=== PATIENT | male | born 1980 | race Caucasian/White ===

== ENCOUNTER 2018-05-27 15:02 | Emergency (ER) | payer OTHER ==
[~2018-05-27] VITALS: Ht 180.3 cm; Wt 83.2 kg
[2018-05-27 17:08] LABS: BASOPHIL (%) 0.5 % (0-1); EOSINOPHIL (%) 0.1 % (0-5); IMMATURE GRANULOCYTE (%) 0.2 % (0.0-0.7); LYMPHOCYTE (%) 37.7 % (15-42); LYMPHOCYTE COUNT 3.1 K/uL (1.0-2.8); MCH 35.1 PG (29.0-34.0); MCHC 36.4 G/DL (30.0-36.0); MCV 96.5 FL (86-99); MONOCYTE (%) 13.7 % (3-12); MONOCYTE COUNT 1.1 K/uL (0-0.8); NEUTROPHIL (%) 47.8 % (45-76); PLATELET COUNT 296 K/uL (156-360); RBC DIS.WIDTH-CV 12.5 % (11.8-14.6); RED BLOOD COUNT 4.56 M/uL (4.00-5.50); WHITE BLOOD COUNT 8.3 K/uL (4.1-10.2)
[2018-05-27 17:26] LABS: ALBUMIN 4.5 g/dL (3.2-4.8); CHLORIDE 100 mEq/L (99-109); POTASSIUM 3.8 mEq/L (3.7-5.4); SODIUM 139 mEq/L (136-147)
[2018-05-27 17:28] LABS: GLUCOSE 131 mg/dL (70-99); TOTAL PROTEIN 7.1 g/dL (6.4-8.3)
[2018-05-27 17:30] LABS: TOTAL BILIRUBIN 0.5 mg/dL (0.0-1.0)
[2018-05-27 17:31] LABS: SERUM ETHYL ALCOHOL 296 mg/dL
[2018-05-27 17:32] LABS: ALKALINE PHOSPHATASE 116 IU/L (3-129); CREATININE 0.8 mg/dL (0.6-1.3); GFR ESTIMATE (CALCULATED) > 59 mL/min/ (58.99-99999)
[2018-05-27 17:33] LABS: AST (GOT) 194 IU/L (2-34); DIRECT BILIRUBIN 0.2 mg/dL (0.0-0.3); UREA NITROGEN (BUN) 11 mg/dL (9-23)
[2018-05-27 17:35] LABS: ALT (GPT) 198 IU/L (3-49); LIPASE 37 U/L (1.0-51.0)
[2018-05-27 19:34] VITALS: BP 112/73
== END 2018-05-27 19:34 | disposition home or self-care (01) ==
LOC: EME 15:02
PROVIDERS: Emergency Medicine
DX: F10.129 Alcohol abuse with intoxication, unspecified (principal); R74.0 Nonspecific elevation of levels of transaminase and lactic acid dehydrogenase [LDH]; R00.0 Tachycardia, unspecified; R94.31 Abnormal electrocardiogram [ECG] [EKG]; Y90.8 Blood alcohol level of 240 mg/100 ml or more; F17.200 Nicotine dependence, unspecified, uncomplicated; Z88.0 Allergy status to penicillin
CPT/HCPCS: 80048; 80076; 83605; 83690; 83735; 83880; 84484; 85025; 85610; 85730; 93005; 99281; 99285; G0480; J3411; J7030

== ENCOUNTER 2018-06-28 18:08 | Emergency (ER) | payer OTHER ==
[~2018-06-28] VITALS: Ht 182.9 cm; Wt 79.0 kg
[2018-06-28 19:21] VITALS: BP 137/63
== END 2018-06-28 19:22 | disposition left against medical advice (07) ==
LOC: EME 18:08
DX: F10.129 Alcohol abuse with intoxication, unspecified (principal); R00.0 Tachycardia, unspecified; F17.200 Nicotine dependence, unspecified, uncomplicated
CPT/HCPCS: 99281; 99283